=== PATIENT | female | born 1970 | race Caucasian/White ===

== ENCOUNTER 2019-05-22 15:03 | Emergency (ER) | payer OTHER ==
[~2019-05-22] VITALS: Ht 154.9 cm; Wt 45.4 kg
[2019-05-22] MEDS ORDERED: NORCO 5-325 TA1 EACH PO ×2 (15:15→17:12)
[2019-05-22] MEDS ORDERED: DIAZEPAM10 MG PO (15:15)
[2019-05-22] MEDS ORDERED: NEURONTIN600 MG PO (15:16)
[2019-05-22] MEDS ORDERED: CYCLOBENZAPRINE10 MG PO (15:16)
[2019-05-22] MEDS ORDERED: ACYCLOVIR400 MG PO (15:16)
[2019-05-22] MEDS ORDERED: BUSPIRONE HCL30 MG PO (15:17)
[2019-05-22] MEDS ORDERED: OMEPRAZOLE20 MG PO (15:17)
[2019-05-22] MEDS ORDERED: TRAZODONE HCL100 MG PO (15:17)
[2019-05-22] MEDS ORDERED: NABUMETONE750 MG PO (15:18)
[2019-05-22] MEDS ORDERED: ALL DAY ALLERGY10 M3 PO (15:18)
--- OUTSIDE RECORDS SUMMARY | 2019-05-22 16:30 | XMS ---
PreManage Notification: SEPIDEH POZO Security Medical Record Administrator Events No recent Security Events currently on file CRITERIA MET - [facility] CARE PROVIDERS There are no care providers on record at this time. Uriel has no Care Guidelines for this patient. Jose Miguel VISIT COUNT (12 MO.) 1 L[facility] Jin TOTAL 1 NOTE: Visits indicate total known visits. ED/C VISIT TRACKING (12 MO.) 05/22/2019 15:04 [facility] [place] TYPE: Emergency COMPLAINT: - FINGER INJURY INPATIENT VISIT TRACKING (12 MO.) No inpatient visits to display in this time frame [id number]
== END 2019-05-22 17:36 | disposition home or self-care (01) ==
LOC: ED 15:03
DX: S61.214D Laceration without foreign body of right ring finger without damage to nail, subsequent encounter (principal); F43.10 Post-traumatic stress disorder, unspecified; F17.200 Nicotine dependence, unspecified, uncomplicated; Z88.0 Allergy status to penicillin; Z88.2 Allergy status to sulfonamides; Z88.7 Allergy status to serum and vaccine; Z91.030 Bee allergy status; Z79.899 Other long term (current) drug therapy
CPT/HCPCS: 73140; 99283-25

== ENCOUNTER 2019-07-06 11:39 | Emergency (ER) | payer OTHER ==
[~2019-07-06] VITALS: Ht 154.9 cm; Wt 41.7 kg
[~2019-07-06 11:39] MED LIST: ACYCLOVIR400 MG PO; ALL DAY ALLERGY10 M3 PO; BUSPIRONE HCL30 MG PO; CYCLOBENZAPRINE10 MG PO; DIAZEPAM10 MG PO; DOXYCYCLINE HY100 MG PO; KEFLEX500 MG PO; NABUMETONE750 MG PO; NEURONTIN600 MG PO; NORCO 5-325 TA1 EACH PO; OMEPRAZOLE20 MG PO; TRAZODONE HCL100 MG PO; ULTRAM50 MG PO
--- OUTSIDE RECORDS SUMMARY | 2019-07-06 11:42 | XMS ---
PreManage Notification: SEPIDEH POZO Security Sap Pi Architect Events No recent Security Events currently on file CRITERIA MET - [facility] There are no care providers on record at this time. Uriel has no Care Guidelines for this patient. Jose Miguel VISIT COUNT (12 MO.) 3 LENNY Jin TOTAL 3 NOTE: Visits indicate total known visits. ED/UCC VISIT TRACKING (12 MO.) 07/06/2019 11:40 [facility] [place] TYPE: Emergency COMPLAINT: - COUGH, FEVER, SOB 06/03/2019 05:23 [facility] [place] TYPE: Emergency COMPLAINT: - POSSIBLE WOUND INFECTION DIAGNOSES: - Local infection of the skin and subcutaneous tissue, unspecif - Nicotine dependence, unspecified, uncomplicated - Infct fol a proc, superfic incisional surgical site, init 05/22/2019 15:04 [facility] [place] TYPE: Emergency COMPLAINT: - FINGER INJURY DIAGNOSES: - Allergy status to sulfonamides status - Post-traumatic stress disorder, unspecified - Allergy status to serum and vaccine status - Other longterm (current) drug therapy - Laceration without foreign body of right ring finger without - Bee allergy status - Allergy status to penicillin - Nicotine dependence, unspecified, uncomplicated INPATIENT VISIT TRACKING (12 MO.) No inpatient visits to display in this time frame [id number]
== END 2019-07-06 14:07 | disposition home or self-care (01) ==
LOC: ED 11:39
DX: B34.9 Viral infection, unspecified (principal); F41.9 Anxiety disorder, unspecified; F17.200 Nicotine dependence, unspecified, uncomplicated; Z88.0 Allergy status to penicillin; Z88.2 Allergy status to sulfonamides; Z79.899 Other long term (current) drug therapy
CPT/HCPCS: 71045; 87502; 99283-25

== ENCOUNTER 2019-09-06 15:01 | Emergency (ER) | payer OTHER ==
[~2019-09-06] VITALS: Ht 154.9 cm; Wt 41.7 kg
--- OUTSIDE RECORDS SUMMARY | 2019-09-06 15:06 | XMS ---
PreManage Notification: SEPIDEH POZO Security Administrative Technician Events No recent Security Events currently on file CRITERIA MET - [facility] There are no care providers on record at this time. Uriel has no Care Guidelines for this patient. Jose Miguel VISIT COUNT (12 MO.) 4 LENNY Jin TOTAL 4 NOTE: Visits indicate total known visits. ED/C VISIT TRACKING (12 MO.) 09/06/2019 15:03 [facility] [place] TYPE: Emergency COMPLAINT: - SKIN PROBLEM 07/06/2019 11:40 [facility] [place] TYPE: Emergency COMPLAINT: - COUGH, FEVER, SOB DIAGNOSES: - Bee allergy status - Nicotine dependence, unspecified, uncomplicated - Other intermediate (current) drug therapy - Cough - Allergy status to sulfonamides status - Allergy status to penicillin - Allergy status to serum and vaccine status - Viral infection, unspecified - Anxiety disorder, unspecified 06/03/2019 05:23 [facility] [place] TYPE: Emergency COMPLAINT: - POSSIBLE WOUND INFECTION DIAGNOSES: - Local infection of the skin and subcutaneous tissue, unspecif - Nicotine dependence, unspecified, uncomplicated - Infct fol a proc, superfic incisional surgical site, init 05/22/2019 15:04 [facility] [place] TYPE: Emergency COMPLAINT: - FINGER INJURY DIAGNOSES: - Allergy status to sulfonamides status - Post-traumatic stress disorder, unspecified - Allergy status to serum and vaccine status - Other intermediate (current) drug therapy - Laceration without foreign body of right ring finger without - Bee allergy status - Allergy status to penicillin - Nicotine dependence, unspecified, uncomplicated INPATIENT VISIT TRACKING (12 MO.) No inpatient visits to display in this time frame [id number]
[2019-09-06] MEDS ORDERED: DOXYCYCLINE HY100 MG PO (15:58)
== END 2019-09-06 16:07 | disposition home or self-care (01) ==
LOC: ED 15:01
DX: L73.9 Follicular disorder, unspecified (principal); F41.9 Anxiety disorder, unspecified; F17.200 Nicotine dependence, unspecified, uncomplicated; Z88.0 Allergy status to penicillin; Z88.2 Allergy status to sulfonamides; Z88.7 Allergy status to serum and vaccine; Z91.030 Bee allergy status
CPT/HCPCS: 99283

== ENCOUNTER 2019-11-17 17:54 | Emergency (ER) | payer OTHER ==
[~2019-11-17] VITALS: Ht 154.9 cm; Wt 41.7 kg
--- OUTSIDE RECORDS SUMMARY | 2019-11-17 17:56 | XMS ---
PreManage Notification: SEPIDEH POZO Security Side Stitching Machine Operator Events No recent Security Events currently on file CRITERIA MET - Group Notification CARE PROVIDERS FINESSE ROMERO Dentist 09/07/2019-Current PHONE: Unknown Uriel has no Care Guidelines for this patient. E.DKrista VISIT COUNT (12 MO.) 5 LENNY Jin TOTAL 5 NOTE: Visits indicate total known visits. ED/UCC VISIT TRACKING (12 MO.) 11/17/2019 17:54 [facility] [place] TYPE: Emergency COMPLAINT: - ABDOMINAL PAIN 09/06/2019 15:03 [facility] [place] TYPE: Emergency COMPLAINT: - SKIN PROBLEM DIAGNOSES: - Allergy status to sulfonamides status - Allergy status to penicillin - Follicular disorder, unspecified - Bee allergy status - Allergy status to serum and vaccine status - Anxiety disorder, unspecified - Nicotine dependence, unspecified, uncomplicated 07/06/2019 11:40 [facility] [place] TYPE: Emergency COMPLAINT: - COUGH, FEVER, SOB DIAGNOSES: - Bee allergy status - Nicotine dependence, unspecified, uncomplicated - Other terminal carman (current) drug therapy - Cough - Allergy status to sulfonamides status - Allergy status to penicillin - Allergy status to serum and vaccine status - Viral infection, unspecified - Anxiety disorder, unspecified 06/03/2019 05:23 [facility] [place] TYPE: Emergency [...] to serum and vaccine status - Other custodial (current) drug therapy - Laceration without foreign body of right ring finger without - Bee allergy status - Allergy status to penicillin - Nicotine dependence, unspecified, uncomplicated INPATIENT VISIT TRACKING (12 MO.) No inpatient visits to display in this time frame [id number]
[2019-11-17] MEDS ORDERED: MAGNESIUM CITR296 ML PO (20:42)
== END 2019-11-17 21:01 | disposition home or self-care (01) ==
LOC: ED 17:54
DX: R10.9 Unspecified abdominal pain (principal); F43.10 Post-traumatic stress disorder, unspecified; F41.9 Anxiety disorder, unspecified; F17.200 Nicotine dependence, unspecified, uncomplicated; Z91.030 Bee allergy status; Z88.0 Allergy status to penicillin; Z88.2 Allergy status to sulfonamides; Z88.7 Allergy status to serum and vaccine; Z79.899 Other long term (current) drug therapy
CPT/HCPCS: 74177; 80053; 81001; 83690; 85025; 99284-25; J7030

== ENCOUNTER 2019-12-04 09:31 | Emergency (ER) | payer OTHER ==
[~2019-12-04] VITALS: Ht 154.9 cm; Wt 41.7 kg
--- OUTSIDE RECORDS SUMMARY | ~2019-12-04 | XMS | Clinical Summary ---
Demographics + + + | Address | [address] | | | [place] [address] | + + + | Home Phone | | + + + | Preferred Language | Unknown | + + + | Marital Status | Unknown | + + + | Samaritan Affiliation | Unknown | + + + | Race | White | + + + | Ethnic Group | Not or | + + + Author + + + | Author | [facility] | | | and [place] | + + + | Organization | [facility] | | | and [place] | + + + | Address | Unknown | + + + | Phone | Unavailable | + + + Support + + +---------+ + | Name | Relationship | Address | Phone | + + +---------+ + | Maya Cabezas | ECON | Unknown | | + + +---------+ + Care Team Providers + +------+ + | Care Cage Maker Name | Role | Phone | + +------+ + | Serenity De La Cruz | PCP | | + +------+ + Allergies Not on File Medications Not on file Active Problems Not on file Social History + +-------+ +--------+------+ | Tobacco [...] on file | | + + + Last Filed Vital Signs Not on file Plan of Treatment +--------+---------+ + + + | Date | Type | Specialty | Care Team | Description | +--------+---------+ + + + | 12/19/ | Office | Physical Medicine | Moisés Andino, | | | 2019 | Visit | and Rehabilitation | MD Ana Maria Enciso | | | | | | [place] | | | | | | [address] | | | | | | | | +--------+---------+ + + + + + +-------+ + | Health Maintenance | Due Date | Last | Comments | | | | Done | | + + +-------+ + | Hepatitis C | | | | | Screening | 9 | | | + + +-------+ + | Vaccine: | | | | | Dtap/Tdap/Td (1 - | 8 | | | | Tdap) | | | | + + +-------+ + | Cervical Cancer | | | | | Screening (Pap) | 9 | | | + + +-------+ + | Breast Cancer | | | | | Screening | 4 | | | + + +-------+ + | Colorectal Cancer | | | | | Screening | 9 | | | | (Colonoscopy) | | | | + + +-------+ + | Vaccine: Zoster (1 | | | | | of 2) | 9 | | | + + +-------+ + | Adult Annual | | | | | Wellness Visit | 0 | | | + + +-------+ + | Vaccine: Influenza | | | | | (#1) | 0 | | | + + +-------+ + Results Not on filefrom Last 3 Months Insurance + +--------+ +--------+-------+---------+--------+ | Payer | Benefi | Subscriber | Effect | Phone | Address | Type | | | t Plan | ID | jacques | | | | | | / | | Dates | | | | | | Group | | | | | | + +--------+ +--------+-------+---------+--------+ | [employer] | [employer] | [id number] | 04/05/19 | | | Medica | | | HEALTH | | 20-Pre | | | re | | | MDCR | | sent | | | | + +--------+ +--------+-------+---------+--------+ + +--------+ +--------+ + + | Guarantor Name | Accoun | Relation to | Date | Phone | Billing Address | | | t Type | Patient | of | | | | | | | | | | + +--------+ +--------+ + + | Bhavna Carranza | Person | Self | [birth year] | [phone] | | | al/Fam | | 1971 | [phone] | [place] , [place] | | | andre | | | 0 (Home) | [phone] | + +--------+ +--------+ + + | Bhavna Carranza | Person | Self | [birth year] | [phone] | | | al/Fam | | 1971 | [phone] | [place] , [place] | | | andre | | | 0 (Home) | [address] | + +--------+ +--------+ + + Advance Directives + + + + + | Type | Date Recorded | Patient | Explanation | | | | Bottle House Cleaners Supervisor | | + + + + + | Power of | | | | | Security Specialist | | | | + + + + + | Advance | | | | | Directive | | | | + + + + +"
[~2019-12-04 09:31] MED LIST changes: +MAGNESIUM CITR296 ML PO
--- OUTSIDE RECORDS SUMMARY | 2019-12-04 09:34 | XMS ---
PreManage Notification: SEPIDEH POOZ Security Solid Center Winder Events No recent Security Events currently on file CRITERIA MET - Group Notification - PDMP - [facility] - 2 Visits in 30 Days CARE PROVIDERS EDMUNDO QUINTERO Physician Station Worker 11/20/2019-Current PHONE: [phone] FINESSE ROMERO Dentist 09/07/2019-Current PHONE: Unknown Uriel has no Care Guidelines for this patient. Care History Medical/Surgical 11/20/2019 [facility] - PATIENT HAS A PCP - EDMUNDO KAY IN [place]- [phone]. - PATIENT HAS AN APT WITH PODIATRY AT [facility] IN [facility] LOCATION - Dec APT DATE- [phone]. E.D. VISIT COUNT (12 MO.) [address] [facility] TOTAL 6 NOTE: Visits indicate total known visits. ED/UCC VISIT TRACKING (12 MO.) 12/04/2019 09:32 [facility] [place] TYPE: Emergency COMPLAINT: - DENTAL PROBLEM 11/17/2019 17:54 [facility] [place] TYPE: Emergency COMPLAINT: - ABDOMINAL PAIN DIAGNOSES: - Other long term care social worker (current) drug therapy - Allergy status to sulfonamides status - Allergy status to penicillin - Post-traumatic stress disorder, unspecified - Bee allergy status - Allergy status to serum and vaccine status - Unspecified abdominal pain - Nicotine dependence, unspecified, uncomplicated - Anxiety disorder, unspecified 09/06/2019 15:03 [facility] [place] TYPE: Emergency [...] - Nicotine dependence, unspecified, uncomplicated - Other long term care social worker (current) drug therapy - Cough - Allergy [...] to serum and vaccine status - Other long term care social worker (current) drug therapy - Laceration without foreign body of right ring finger without - Bee allergy status - Allergy status to penicillin - Nicotine dependence, unspecified, uncomplicated INPATIENT VISIT TRACKING (12 MO.) No inpatient visits to display in this time frame [id number]
[2019-12-04] MEDS ORDERED: GABAPENTIN600 MG PO (09:40)
[2019-12-04] MEDS ORDERED: AMITRIPTYLINE H10 MG PO (09:41)
[2019-12-04] MEDS ORDERED: EPINEPHRIN0.3 MG/0.3 IM (09:42)
[2019-12-04] MEDS ORDERED: PREDNISONE20 MG PO (10:04)
[2019-12-04] MEDS ORDERED: NAPROSYN500 MG PO (10:04)
[2019-12-04] MEDS ORDERED: CLINDAMYCIN HC300 MG PO (10:04)
== END 2019-12-04 10:10 | disposition home or self-care (01) ==
LOC: ED 09:31
DX: K04.7 Periapical abscess without sinus (principal); F41.9 Anxiety disorder, unspecified; F43.10 Post-traumatic stress disorder, unspecified; F17.200 Nicotine dependence, unspecified, uncomplicated; Z91.030 Bee allergy status; Z88.0 Allergy status to penicillin; Z88.2 Allergy status to sulfonamides; Z88.7 Allergy status to serum and vaccine; Z79.899 Other long term (current) drug therapy
CPT/HCPCS: 99283

== ENCOUNTER 2019-12-15 23:35 | Emergency (ER) | payer OTHER ==
[~2019-12-15] VITALS: Ht 154.9 cm; Wt 41.7 kg
--- OUTSIDE RECORDS SUMMARY | ~2019-12-15 | XMS | Encounter Summary ---
Demographics + + + | Address | [address] | | | [place] [address] | + + + | Home Phone | | + + + | Preferred Language | Unknown | + + + | Marital Status | Single | + + + | Sabianism Affiliation | 1041 | + + + | Race | White | + + + | Ethnic Group | Not or | + + + Author + + + | Author | [facility] | | | and [place] | + + + | Organization | [facility] | | | and [place] | + + + | Address | Unknown | + + + | Phone | Unavailable | + + + Support + + + + + | Name | Relationship | Address | Phone | + + + + + | September Raulito | ECON | [address] | | | | | [place] | | | | | [address] | | + + + + + Care Team Providers + +------+ + | Care Recreation Establishment Manager Name | Role | Phone | + +------+ + | Serenity De La Cruz | PCP | | + +------+ + Encounter Details +--------+ + + + + | Date | Type | Department | Care Team | Description | +--------+ + + + + | 12/12/ | Imaging | [facility] | Provider, | | | 2020 | Exam | [facility] | MD [address] | | | | | IMAGING [address] | [address] | | | | | [address] | [place] [address] | | | | | [place] [address] | | | | | | [phone] | | | +--------+ + + + + Social History + +-------+ +--------+------+ | Tobacco Use | Types | Packs/Day | Years | Date | | | | | Used | | + +-------+ +--------+------+ | Never Assessed | | | | | + +-------+ +--------+------+ + + + | Sex Assigned at | Date Recorded | | | | + + + | Not on file | | + + + documented as of this encounter Plan of Treatment +--------+ + + + + | Date | Type | Specialty | Care Team | Description | +--------+ + + + + | 12/19/ | Office | Physical Medicine | Moisés Andino, | | | 2019 | Visit | and Rehabilitation | MD Ana Maria Enciso | | | | | | [place] | | | | | | [address] | | | | | | | | +--------+ + + + + | 12/27/ | Office | Rehabilitation | Charleen Josue, | | | 2019 | Visit | | Speech Pathologist | | | | | | Alan Fry, | | | | | | Aide | | +--------+ + + + + | 12/28/ | Appointment | Radiology | Dave Caputo, | | | 2019 | | | REECE [address] | | | | | | Lakisha Chaves | | | | | | [place] [address] | | | | | | [phone] | | | | | | | | +--------+ + + + + documented as of this encounter Procedures + +--------+ + + + | Procedure Name | Priori | Date/Time | Associated Diagnosis | Comments | | | ty | | | | + +--------+ + + + | HANS DIGITAL | Routin | 10/28/2018 | | Results for this | | SCREENING BILATERAL | e | 12:00 AM | | procedure are in the | | | | PDT | | results section. | + +--------+ + + + documented in this encounter Results HANS Digital Screening Bilateral (10/28/2018 12:00 AM PDT) + + | Specimen | + + | | + + + + + | Narrative | Performed At | + + + | External films for comparison only | [facility] | | | | | No results will be in the chart. | | + + + + +---------+ + + | Performing | Address | City/State/Zipcode | Phone Number | | Organization | | | | + +---------+ + + | [facility] | | | | + +---------+ + + documented in this encounter Visit Diagnoses Not on filedocumented in this encounter"
--- OUTSIDE RECORDS SUMMARY | ~2019-12-15 | XMS | Encounter Summary ---
Demographics + + + | Address | [address] | | | [place] [address] | + + + | Home Phone | | + + + | Preferred Language | Unknown | + + + | Marital Status | Single | + + + | Adventist Affiliation | 1041 | + + + | Race | White | + + + | Ethnic Group | Not or | + + + Author + + + | Author | [facility] | | | and [place] | + + + | Organization | [facility] | | | and [place] | + + + | Address | Unknown | + + + | Phone | Unavailable | + + + Support + + + + + | Name | Relationship | Address | Phone | + + + + + | September Raulito | ECON | [address] | | | | | [place] | | | | | [address] | | + + + + + Care Team Providers + +------+ + | Care Pin Puller Name | Role | Phone | + +------+ + | Serenity De La Cruz | PCP | | + +------+ + Encounter Details +--------+ + + + + | Date | Type | Department | Care Team | Description | +--------+ + + + + | 12/05/ | Hospital | [facility] | Dave Caputo, | Wrist pain, left | | 2020 | Encounter | MED CTR XRAY [address] | PA-C [address] | | | | | [place] | [facility] [facility] [place] | | | | | [place] [address] | [place] [address] | | | | | [phone] | [phone] | | | | | | | [...] + + documented as of this encounter Medications at Time of Discharge + + + +---------+ + + | Medication | Sig | Dispensed | Refills | Start | End Date | | | | | | Date | | + + + +---------+ + + | amitriptyline | Take 10 mg by mouth | | 0 | 11/22/19 | | | (ELAVIL) 10 mg | nightly. | | | 20 | | | tablet | | | | | | + + + +---------+ + + | cetirizine | Take 10 mg by mouth | | 0 | 11/08/19 | | | (ZYRTEC) 10 mg | Daily. | | | 20 | | | tablet | | | | | | + + + +---------+ + + | clindamycin | Take 300 mg by mouth | | 0 | 12/04/19 | | | (CLEOCIN) 300 MG | every 6 hours. | | | 20 | | | capsule | | | | | | + + + +---------+ + + | DULoxetine | Take 60 mg by mouth | | 0 | 12/06/19 | | | (CYMBALTA) [address] | Daily. | | | 20 | | | capsule | | | | | | + + + +---------+ + + | EPINEPHrine | Inject 0.3 mLs into | | 0 | 11/08/19 | | | auto-injector 0.3 | the muscle as needed | | | 20 | | | mg/0.3 mL injection | for Anaphylaxis | | | | | | | Then call 911.. | | | | | + + + +---------+ + + | famotidine | Take 20 mg by mouth | | 0 | 09/27/19 | | | (PEPCID) 20 mg | Twice daily as | | | 20 | | | tablet | needed for | | | | | | | Heartburn. | | | | | + + + +---------+ + + | gabapentin | Take 300 mg by mouth | | 0 | 12/06/19 | | | (NEURONTIN) 300 mg | 3 times daily. | | | 20 | | | capsule | | | | | | + + + +---------+ + + | nabumetone | Take 750 mg by mouth | | 0 | 11/09/19 | | | (RELAFEN) 750 mg | 2 times daily. | | | 20 | | | tablet | | | | | | + + + +---------+ + + | ondansetron | Take 4 mg by mouth | | 0 | 09/27/19 | | | (ZOFRAN ODT) 4 mg | every 8 hours as | | | 20 | | | disintegrating | needed for Nausea or | | | | | | tablet | Vomiting. | | | | | + + + +---------+ + + | predniSONE | Take 60 mg by mouth | | 0 | 12/04/19 | | | (DELTASONE) 20 mg | Daily. | | | 20 | | | tablet | | | | | | + + + +---------+ + + documented as of this encounter Plan of Treatment +--------+ + + + + | Date | Type | Specialty | Care Team | Description | +--------+ + + + + | 12/19/ | Office | Physical Medicine | Moisés Andino, | | | 2019 | Visit | and Rehabilitation | [address] | | | | | | [place] | | | | | | [address] | | | | | | | | +--------+ + + + + | 12/27/ | Office | Rehabilitation | Charleen Josue, | | | 2019 | Visit | | Speech Pathologist | | | | | | Alan Fry, | | | | | | [place] | | +--------+ + + + + | 12/28/ | Appointment | Radiology | Dave Caputo, | | | 2019 | | | REECE [address] | | | | | | [address]isha [address] | | | | | | [place] [address] | | | | | | [phone] | | | | | | | | +--------+ + + + + documented as of this encounter Procedures + +--------+ + + + | Procedure Name | Priori | Date/Time | Associated Diagnosis | Comments | | | ty | | | | + +--------+ + + + | XR WRIST LEFT 3 + VW | Routin | 12/06/2019 | Wrist pain, left | Results for this | | | e | 11:15 AM | | procedure are in the | | | | PDT | | results section. | + +--------+ + + + documented in this encounter Results XR Wrist Left 3 + Vw (12/06/2019 11:15 AM PDT) + + | Specimen | + + | | + + + + + | Impressions | Performed At | + + + | 1. TINY OSSICLE ADJACENT TO THE FIRST METACARPAL HEAD AND | [facility] | | ASSOCIATED SOFT TISSUE SWELLING. CHIP OR AVULSION FRACTURE ARE | | | CONSIDERATIONS. Electronically signed by Flash Villatoro MD 12/06/2019 | | | 12:37 PM | | + + + + + + | Narrative | Performed At | + + + | 3 VIEWS LEFT | [facility] | | WRIST 12/06/2019 11:10 AM CLINICAL HISTORY: LEFT WRIST PAIN | | | COMPARISON: None available FINDINGS: The bones are well-mineralized | | | and well aligned. No overtfracture is evident. A tiny ossicle | | | projecting along the margin of thefirst metacarpal head is | | | nonspecific. There is overlying soft tissueswelling. Joint spaces are | | | maintained. | | |fracture is evident. A tiny ossicle projecting along the margin of the | | |first metacarpal head is nonspecific. There is overlying soft tissue | | |swelling. Joint spaces are maintained. | | | | | + + + + + | Procedure Note | + + | [place], [id number] - 12/06/2019 12:40 PM PDT 3 VIEWS LEFT WRIST 12/06/2019 11:10 AM | | | | CLINICAL HISTORY: LEFT WRIST PAIN | | | | COMPARISON: None available | | | | FINDINGS: The bones are well-mineralized and well aligned. No overt | | fracture is evident. A tiny ossicle projecting along the margin of the | | first metacarpal head is nonspecific. There is overlying soft tissue | | swelling. Joint spaces are maintained. | | | | IMPRESSION: | | 1. TINY OSSICLE ADJACENT TO THE FIRST METACARPAL HEAD AND ASSOCIATED | | SOFT TISSUE SWELLING. CHIP OR AVULSION FRACTURE ARE CONSIDERATIONS. | | | | Electronically signed by Flash Villatoro MD 12/06/2019 12:37 PM | + + + +---------+ + + | Performing | Address | City/State/Zipcode | Phone Number | | Organization | | | | + +---------+ + + | [facility] | | | | + +---------+ + + documented in this encounter Visit Diagnoses + + | Diagnosis | + + | Wrist pain, left Pain in joint, forearm | + + documented in this encounter"
--- OUTSIDE RECORDS SUMMARY | ~2019-12-15 | XMS | Encounter Summary ---
Demographics + + + | Address | [address] | | | [place] [address] | + + + | Home Phone | | + + + | Preferred Language | Unknown | + + + | Marital Status | Single | + + + | Taoist Affiliation | 1041 | + + + | Race | White | + + + | Ethnic Group | Not or | + + + Author + + + | Author | [facility] | | | and [place] | + + + | Organization | [facility] | | | and [place] | + + + | Address | Unknown | + + + | Phone | Unavailable | + + + Support + + + + + | Name | Relationship | Address | Phone | + + + + + | September Raulito | ECON | [address] | | | | | [place] | | | | | [address] | | + + + + + Care Team Providers + +------+ + | Care Career Services Director Name | Role | Phone | + +------+ + | Serenity De La Cruz | PCP | | + +------+ + Reason for Visit + +--------+ + | Reason | Onset | Comments | | | Date | | + +--------+ + | Missed Visit | 12/14/ | | | | 2020 | | + +--------+ + Encounter Details +--------+ + + + + | Date | Type | Department | Care Team | Description | +--------+ + + + + | 12/14/ | Telephone | [facility] | Charleen Josue, | Missed Visit | | 2019 | | [facility] | Speech Pathologist | | | | | [address] | | | | | | [place] | | | | | | [address] | | | | | | [phone] | | | +--------+ + + + + Social History + + + +--------+------+ | Tobacco Use | Types | Packs/Day | Years | Date | | | | | Used | | + + + +--------+------+ | Current Every Day | Cigarettes | 0.25 | | | | Smoker | | | | | + + + +--------+------+ + +---+---+---+ | Smokeless Tobacco: | | | | | Former User | | | | + +---+---+---+ + + +---------+ + | Alcohol Use | Drinks/Week | oz/Week | Comments | + + +---------+ + | Not Currently | | | | + + +---------+ + + + + + | Education | Answer | Date Recorded | + + + + | What is the highest level of school you | Bachelor's degree (e.g., | 12/07/2019 | | have completed or the highest degree you | BA, AB, BS) | | | have received? | | | + + + + + + + | Sex Assigned at | Date Recorded | | | | + + + | Not on file | | + + + documented as of this encounter Miscellaneous Notes Telephone Encounter - Precious Guzman - 12/15/2019 10:27 AM PDTPatient called to cancel visit on 12/15/19. Due to had to have 2 epinephrine shots and cannot drive. documented in this enc ounter Plan of Treatment +--------+ + + + + | Date | Type | Specialty | Care Team | Description | +--------+ + + + + | 09/16/ | Office | Physical Medicine | Moisés Andino, | | | 2019 | Visit | and Rehabilitation | MD Ana Maria Enciso | | | | | | [place] | | | | | | [address] | | | | | | | [...] | 2019 | | | [address] | | | | | | [place] | | | | | | [place] [address] | | | | | | [phone] | | | | | | | | +--------+ + + + + documented as of this encounter Visit Diagnoses Not on filedocumented in this encounter"
--- OUTSIDE RECORDS SUMMARY | ~2019-12-15 | XMS | Encounter Summary ---
Demographics + + + | Address | [address] | | | [place] [address] | + + + | Home Phone | | + + + | Preferred Language | Unknown | + + + | Marital Status | Single | + + + | Latter-Day Affiliation | 1041 | + + + | Race | White | + + + | Ethnic Group | Not or | + + + Author + + + | Author | [facility] | | | and [place] | + + + | Organization | [facility] | | | and [place] | + + + | Address | Unknown | + + + | Phone | Unavailable | + + + Support + + + + + | Name | Relationship | Address | Phone | + + + + + | September Raulito | ECON | [address] | | | | | [place] | | | | | [address] | | + + + + + Care Team Providers + +------+ + | Care Publisher Assistant Name | Role | Phone | + +------+ + | Serenity De La Cruz | PCP | | + +------+ + Encounter Details +--------+ + + + + | Date | Type | Department | Care Team | Description | +--------+ + + + + | 12/06/ | Abstract | [facility] | Provider, | | | 2019 | | PHYSIATRY [address] | [address], MD [address] | | | | | [address] | [place]. | | | | | [place] | [place] [address] | | | | | [address] | | | | | | [phone] | | | +--------+ + + + [...] | and Rehabilitation | MD Ana Maria Pantoja | | | | | | [place] | | | | | | [address] | | | | | | | [...] | | 2019 | | | [address] | | | | | | [place] | | | | | | [place] [address] | | | | | | [phone] | | | | | | | | +--------+ + + + + documented as of this encounter Visit Diagnoses Not on filedocumented in this encounter"
--- OUTSIDE RECORDS SUMMARY | ~2019-12-15 | XMS | Clinical Summary ---
Demographics + + + | Address | [address] | | | [place] [address] | + + + | Home Phone | | + + + | Preferred Language | Unknown | + + + | Marital Status | Single | + + + | Oriental Orthodox Affiliation | 1041 | + + + | Race | White | + + + | Ethnic Group | Not or | + + + Author + + + | Author | [facility] | | | and [place] | + + + | Organization | [facility] | | | and [place] | + + + | Address | Unknown | + + + | Phone | Unavailable | + + + Support + + + + + | Name | Relationship | Address | Phone | + + + + + | Maya Raulito | ECON | [address] | | | | | [place] | | | | | [address] | | + + + + + Care Team Providers + +------+ + | Care Licensed Occupational Therapist Name | Role | Phone | + +------+ + | Serenity De La Cruz | PCP | | + +------+ + Allergies + + + + + + | Active Allergy | Reactions | Severity | Noted | Comments | | | | | Date | | + + + + + + | Bee Venom | Anaphylaxis | High | | | + + + + + + | Penicillins | Anaphylaxis | High | 09/27/19 | | | | | | 20 | | + + + + + + | Sulfa Antibiotics | Anaphylaxis | High | 09/27/19 | | | | | | 20 | | + + + + + + Medications + + + +---------+------+------+-------+ | Medication | Sig | Dispensed | Refills | Star | End | Statu | | | | | | t | Date | s | | | | | | Date | | | + + + +---------+------+------+-------+ | EPINEPHrine | Inject 0.3 mLs into | | 0 | 08/0 | | Activ | | auto-injector 0.3 | the muscle as needed | | | 5/20 | | e | | mg/0.3 mL injection | for Anaphylaxis | | | 20 | | | | | Then call 911.. | | | | | | + + + +---------+------+------+-------+ | cetirizine | Take 10 mg by mouth | | 0 | 08/0 | | Activ | | (ZYRTEC) 10 mg | Daily. | | | 5/20 | | e | | tablet | | | | 20 | | | + + + +---------+------+------+-------+ | ondansetron | Take 4 mg by mouth | | 0 | 06/2 | | Activ | | (ZOFRAN ODT) 4 mg | every 8 hours as | | | 4/20 | | e | | disintegrating | needed for Nausea or | | | 20 | | | | tablet | Vomiting. | | | | | | + + + +---------+------+------+-------+ | nabumetone | Take 750 mg by mouth | | 0 | 08/0 | | Activ | | (RELAFEN) 750 mg | 2 times daily. | | | 6/20 | | e | | tablet | | | | 20 | | | + + + +---------+------+------+-------+ | | Take 1 tablet by | | 0 | | | Activ | | HYDROcodone-acetamin | mouth every 14 days. | | | | | e | | ophen (NORCO) 5-325 | | | | | | | | mg per tablet | | | | | | | + + + +---------+------+------+-------+ | diazePAM (VALIUM) | Take 5 mg by mouth | | 0 | | | Activ | | 5 mg tablet | every 6 hours as | | | | | e | | | needed for Anxiety. | | | | | | + + + +---------+------+------+-------+ | cyclobenzaprine | Take 10 mg by mouth | | 0 | | | Activ | | (FLEXERIL) 10 mg | every 12 hours as | | | | | e | | tablet | needed for Muscle | | | | | | | | spasms. | | | | | | + + + +---------+------+------+-------+ | omeprazole | Take 20 mg by mouth | | 0 | | | Activ | | (PRILOSEC) 20 mg | 2 times daily. | | | | | e | | capsule | | | | | | | + + + +---------+------+------+-------+ | Ferrous Sulfate | Take 50-100 mg by | | 0 | | | Activ | | Dried (FERROUS | mouth Daily. | | | | | e | | SULFATE IRON PO) | | | | | | | + + + +---------+------+------+-------+ | cholecalciferol | Take 2,000 Units by | | 0 | | | Activ | | (VITAMIN D3) 50 mcg | mouth Daily. | | | | | e | | (2,000 units) | | | | | | | | capsule | | | | | | | + + + +---------+------+------+-------+ | MAGNESIUM OXIDE PO | Take by mouth Daily. | | 0 | | | Activ | | | | | | | | e | + + + +---------+------+------+-------+ | POTASSIUM PO | Take by mouth Daily. | | 0 | | | Activ | | | | | | | | e | + + + +---------+------+------+-------+ | amitriptyline | Take 10 mg by mouth | | 0 | 08/1 | | Activ | | (ELAVIL) 10 mg | nightly. | | | 9/20 | | e | | tablet | | | | 20 | | | + + + +---------+------+------+-------+ | predniSONE | Take 60 mg by mouth | | 0 | 08/3 | | Activ | | (DELTASONE) 20 mg | Daily. | | | 1/20 | | e | | tablet | | | | 20 | | | + + + +---------+------+------+-------+ | clindamycin | Take 300 mg by mouth | | 0 | 08/3 | | Activ | | (CLEOCIN) 300 MG | every 6 hours. | | | 1/20 | | e | | capsule | | | | 20 | | | + + + +---------+------+------+-------+ | DULoxetine | Take 60 mg by mouth | | 0 | 09/0 | | Activ | | (CYMBALTA) [address] | Daily. | | | 2/20 | | e | | capsule | | | | 20 | | | + + + +---------+------+------+-------+ | gabapentin | Take 300 mg by mouth | | 0 | 09/0 | | Activ | | (NEURONTIN) 300 mg | 3 times daily. | | | 2/20 | | e | | capsule | | | | 20 | | | + + + +---------+------+------+-------+ | famotidine | Take 20 mg by mouth | | 0 | 06/2 | | Activ | | (PEPCID) 20 mg | Twice daily as | | | 4/20 | | e | | tablet | needed for | | | 20 | | | | | Heartburn. | | | | | | + + + +---------+------+------+-------+ Active Problems + + + | Problem | Noted Date | + + + | Fibromyalgia | 12/06/2019 | + + + + + | Overview: Per patient reportOn opioids for yearsLast | | Assessment & Plan: Much discussion with patient regarding | | treatment of fibromyalgia and chronic pain, opioids not indicated | | may make her chronic pain worse, reviewed the risks and side | | effects of opioid use. We reviewed other treatment options and | | she was agreeable to increased dose of gabapentin 300 mg t.i.d. | | as well as starting trial of Cymbalta which may help with | | concomitant mild depression. Start with 30 mg daily for 1 week | | then increase to 60 mg recheck in 1 month.She may continue her | | NSAIDs and muscle relaxers p.r.n. | + + + + + | Hx of tonic-clonic seizures | 11/22/2019 | + + + | Memory impairment | 11/22/2019 | + + + | Umbilical hernia without obstruction and without gangrene | 11/22/2019 | + + + + + | Overview: CT scan from ER report at [facility] | | [facility]-see scanned ER document November 2019 | + + Encounters +--------+ + + + + | Date | Type | Specialty | Care Team | Description | +--------+ + + + + | 12/14/ | Telephone | Rehabilitation | Charleen Josue, | Missed Visit | 2019 | | | Speech Pathologist | | +--------+ + + + + | 12/06/ | Abstract | Physical Medicine | Provider, | | | 2019 | | and Rehabilitation | MD Brandon | | +--------+ + + + + | 12/05/ | Hospital | Radiology | Dave Caputo, | Wrist pain, left | | 2019 | Encounter | | PA-C | | +--------+ + + + + from Last 3 Months Family History + + +------+ + | Medical History | Relation | Name | Comments | + + +------+ + | No known problems | Father | | | + + +------+ + | No known problems | Maternal | | | | | Grandfath | | | | | er | | | + + +------+ + | No known problems | Maternal | | | | | Grandmoth | | | | | er | | | + + +------+ + | Heart attack | Mother | | | + + +------+ + | Heart disease | Mother | | | + + +------+ + | Heart failure | Mother | | | + + +------+ + | No known problems | Paternal | | | | | Grandfath | | | | | er | | | + + +------+ + | No known problems | Paternal | | | | | Grandmoth | | | | | er | | | + + +------+ + + +------+--------+ + | Relation | Name | Status | Comments | + +------+--------+ + | Father | | Alive | | + +------+--------+ + | Maternal Grandfather | | | | + +------+--------+ + | Maternal Grandmother | | | | + +------+--------+ + | Mother | | Alive | | + +------+--------+ + | Paternal Grandfather | | | | + +------+--------+ + | Paternal Grandmother | | | | + +------+--------+ + Social History + + + +--------+------+ [...] Signs Not on file Plan of Treatment +--------+ + + + + | Date | Type | Specialty | Care Team | Description | +--------+ + + + + | 12/19/ | Office | Physical Medicine | Moisés Andino, | | 2019 | Visit | and Rehabilitation | MD Ana Maria Enciso | | | | | | [place] | | | | | | [phone] | | | | | | | [...] | Radiology | Dave Caputo, | | 2019 | | | [address] | | | | | | [place] | | | | | | [place] [address] | | | | | | [phone] | | | | | | | | +--------+ + + + + + + + + + | Health Maintenance | Due Date | Last | Comments | | | | Done | | + + + + + | Hepatitis C | | | | | Screening | 9 | | | + + + + + | Med Mgmt: BUN | | | | | | 9 | | | + + + + + | Med Mgmt: Cr | | | | | | 9 | | | + + + + + | Med Mgmt: Vit D | | | | | | 9 | | | + + + + + | Med Mgmt: eGFR | | | | | | 9 | | | + + + + + | Medication | | | | | Management | 9 | | | + + + + + | Vaccine: | | | | | Pneumococcal 19-64 | 5 | | | | (1 of 1 - PPSV23) | | | | + + + + + | Vaccine: | | | | | Dtap/Tdap/Td (1 - | 8 | | | | Tdap) | | | | + + + + + | Cervical Cancer | | | | | Screening (Pap) | 9 | | | + + + + + | Colorectal Cancer | | | | | Screening | 9 | | | | (Colonoscopy) | | | | + + + + + | Vaccine: Zoster (1 | | | | | of 2) | 9 | | | + + + + + | Breast Cancer | | 10/29/19 | | | Screening | 0 | 19, | | | | | 08/14/19 | | | | | 13 | | + + + + + | Adult Annual | | | | | Wellness Visit | 0 | | | + + + + + | Vaccine: Influenza | | 01/20/20 | | | (#1) | 0 | 17, | | | | | 01/20/20 | | | | | 17, | | | | | 01/14/20 | | | | | 16, | | | | | Addition | | | | | al | | | | | history | | | | | exists | | + + + + + Procedures + +--------+ + + + | [...] section. | + +--------+ + + + from Last 3 Months Results XR Wrist Left 3 + Vw [...] Procedure Note | + + | Torey, [id number] - 12/06/2019 12:40 PM PDT 3 VIEWS [...] | | | + +---------+ + + from Last 3 Months Insurance + +--------+ +--------+ +---------+--------+ | Payer | Benefi | Subscriber | Effect | Phone | Address | Type | | | t Plan | ID | jacques | | | | | | / | | Dates | | | | | | Group | | | | | | + +--------+ +--------+ +---------+--------+ | [employer] | MOD[employer] | [id number] | 04/05/19 | | | Medica | | | HEALTH | | 20-Pre | | | re | | | MDCR | | sent | | | | + +--------+ +--------+ +---------+--------+ | [employer] | [employer] | [id number] | 12/05/19 | [phone] | | Medica | | MEDICAID HMO | HEALTH | | 20-Pre | 1 | | id | | | MDCD | | sent | | | | | | [place]MO [place] | | | | | | + +--------+ +--------+ +---------+--------+ + +--------+ +--------+ + + | Guarantor Name | Accoun | Relation to | Date | Phone | Billing Address | | | t Type | Patient | of | | | | | | | | | | + +--------+ +--------+ + + | Bhavna Carranza | Person | Self | [birth year] | [address] | | | al/Fam | | 1970 | [phone] | [place] , [place] | | | andre | | | 1 (Home) | [address] | + +--------+ +--------+ + + | Bhavna Carranza | Person | Self | [birth year] | | [address] | | | al/Fam | | 1970 | [phone] | [place] , [place] | | | andre | | | 1 (Home) | [address] | + +--------+ +--------+ + + | Bhavna Carranza | Person | Self | [birth year] | | [address] | | | al/Fam | | 1970 | [phone] | [place] , [place] | | | andre | | | 1 (Home) | [address] | + +--------+ +--------+ + + Advance Directives + + + + + | Type | Date Recorded | Patient | Explanation | | | | Product Transfer Pumper | | + + + + + | Power of | | | | | Finishing Range Supervisor | | | | + + + + + | Advance | | | | | Directive | | | | + + + + +"
--- OUTSIDE RECORDS SUMMARY | ~2019-12-15 | XMS | Encounter Summary ---
Demographics + + + | Address | [address] | | | [place] [address] | + + + | Home Phone | | + + + | Preferred Language | Unknown | + + + | Marital Status | Single | + + + | Moravian Affiliation | 1041 | + + + | Race | White | + + + | Ethnic Group | Not or | + + + Author + + + | Author | [facility] | | | and [place] | + + + | Organization | [facility] | | | and [place] | + + + | Address | Unknown | + + + | Phone | Unavailable | + + + Support + + + + + | Name | Relationship | Address | Phone | + + + + + | September Raulito | ECON | [address] | | | | | [place] | | | | | [address] | | + + + + + Care Team Providers + +------+ + | Care Botany Teacher Name | Role | Phone | + [...] | | | | ANDRADE SHAFFER | [place] [address] | | | | | [place] [address] | | | | | | [phone] | | | +--------+ + + + [...] [place] | | | | | | [address] | | | | | | | [...] | 2019 | | | [address] | | | | | | [place] | | | | | | [place] [address] | | | | | | [phone] | | | | | | | | +--------+ + + + + documented as of this encounter Procedures + +--------+ + + + | Procedure Name | Priori | Date/Time | Associated Diagnosis | Comments | | | ty | | | | + +--------+ + + + | HANS DIGITAL | Routin | 08/13/2012 | | Results for this | | SCREENING BILATERAL | e | 12:00 AM | | procedure are in the | | | | PDT | | results section. | + +--------+ + + + documented in this encounter Results HANS Digital Screening Bilateral (08/13/2012 12:00 AM PDT) + + | Specimen [...]
[~2019-12-15 23:35] MED LIST changes: +AMITRIPTYLINE H10 MG PO; +CLINDAMYCIN HC300 MG PO; +EPINEPHRIN0.3 MG/0.3 IM; +GABAPENTIN600 MG PO; +NAPROSYN500 MG PO; +PREDNISONE20 MG PO
--- OUTSIDE RECORDS SUMMARY | 2019-12-15 23:38 | XMS ---
PreManage Notification: SEPIDEH POZO Security Training Developer Events No recent Security Events currently on file CRITERIA MET - [facility] - [facility] - 2 Visits in 30 Days CARE PROVIDERS EDMUNDO QUINTERO Physician Guide Cruise 11/20/2019-Current PHONE: [phone] FINESSE ROMERO Dentist 09/07/2019-Current PHONE: Unknown Uriel has no Care Guidelines for this patient. Care History Medical/Surgical 12/05/2019 [facility] - [facility] CALLED PATIENT - LEFT A VOICEMAIL. 11/20/2019 [facility] - PATIENT HAS A PCP - EDMUNDO KAY [place]- [phone]. - PATIENT HAS AN APT WITH PODIATRY AT [facility] IN [facility] - Dec APT DATE- [phone]. E.D. VISIT COUNT (12 MO.) 7 LENNY Jin TOTAL 7 NOTE: Visits indicate total known visits. ED/UCC VISIT TRACKING (12 MO.) 12/15/2019 23:35 [facility] [place] TYPE: Emergency COMPLAINT: - WRIST INJ 12/04/2019 09:32 [facility] [place] TYPE: Emergency COMPLAINT: - DENTAL PROBLEM DIAGNOSES: - Allergy status to serum and vaccine status - Other specified disorders of teeth and supporting structures - Periapical abscess without sinus - Allergy status to sulfonamides status - Bee allergy status - Other jail (current) drug therapy - Allergy status to penicillin - Post-traumatic stress disorder, unspecified - Anxiety disorder, unspecified - Nicotine dependence, unspecified, uncomplicated 11/17/2019 17:54 [facility] [place] TYPE: Emergency COMPLAINT: - ABDOMINAL PAIN DIAGNOSES: - Other jail (current) drug therapy - Allergy status to [...] - Nicotine dependence, unspecified, uncomplicated - Other jail (current) drug therapy - Cough - Allergy [...] to serum and vaccine status - Other jail (current) drug therapy - Laceration without foreign body of right ring finger without - Bee allergy status - Allergy status to penicillin - Nicotine dependence, unspecified, uncomplicated INPATIENT VISIT TRACKING (12 MO.) No inpatient visits to display in this time frame [id number]
== END 2019-12-16 00:31 | disposition home or self-care (01) ==
LOC: ED 23:35
DX: M25.532 Pain in left wrist (principal); F43.10 Post-traumatic stress disorder, unspecified; F41.9 Anxiety disorder, unspecified; Z85.41 Personal history of malignant neoplasm of cervix uteri; Z85.42 Personal history of malignant neoplasm of other parts of uterus; Z85.828 Personal history of other malignant neoplasm of skin; F17.200 Nicotine dependence, unspecified, uncomplicated; Z88.0 Allergy status to penicillin; Z88.2 Allergy status to sulfonamides; Z91.030 Bee allergy status; Z79.899 Other long term (current) drug therapy
CPT/HCPCS: 99283

== ENCOUNTER 2020-07-20 14:37 | Emergency (ER) | payer OTHER ==
[~2020-07-20] VITALS: Ht 154.9 cm; Wt 41.7 kg
[2020-07-20] MEDS ORDERED: MACROBID 100 M100 MG PO (18:11)
== END 2020-07-20 18:23 | disposition home or self-care (01) ==
LOC: ED 14:37
DX: S70.11XA Contusion of right thigh, initial encounter (principal); F15.90 Other stimulant use, unspecified, uncomplicated; N39.0 Urinary tract infection, site not specified; W22.8XXA Striking against or struck by other objects, initial encounter; F17.200 Nicotine dependence, unspecified, uncomplicated; Z85.42 Personal history of malignant neoplasm of other parts of uterus; Z85.828 Personal history of other malignant neoplasm of skin; Z85.89 Personal history of malignant neoplasm of other organs and systems; Z91.030 Bee allergy status; Z88.0 Allergy status to penicillin; Z88.2 Allergy status to sulfonamides; Z88.7 Allergy status to serum and vaccine; Z79.899 Other long term (current) drug therapy
CPT/HCPCS: 80053; 81001; 85025; 85610; 85651; 85730; 87077; 87088; 87186; 99283

== ENCOUNTER 2020-11-15 13:28 | Emergency (ER) | payer OTHER ==
[~2020-11-15] VITALS: Ht 154.9 cm; Wt 45.4 kg
[~2020-11-15 13:28] MED LIST changes: +MACROBID 100 M100 MG PO
--- OUTSIDE RECORDS SUMMARY | 2020-11-15 13:30 | XMS ---
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 Care History Medical/Surgical 12/18/2019 [facility] Care Recommendation: - PLEASE REVIEW PDMP ON THE URIEL - USE EXTREME CAUTION IN GIVING NARCOTICS. - Avoid Discharge Narcotic prescriptions if at all possible. Physician discretion. 12/05/2019 [facility] - [facility] CALLED PATIENT - LEFT A VOICEMAIL. 11/20/2019 [facility] - PATIENT HAS A PCP - EDMUNDO KAY IN [place]- [phone]. - PATIENT HAS AN APT WITH POD[facility]ATRY AT [facility] - Dec APT DATE- [phone]. E.D. VISIT COUNT (12 MO.) [address] [facility] TOTAL 5 NOTE: Visits indicate total known visits. ED/UCC VISIT TRACKING (12 MO.) 11/15/2020 13:29 [facility] [place] TYPE: Emergency COMPLAINT: - RIGHT HAND INJURY 07/20/2020 14:38 [facility] [place] TYPE: Emergency COMPLAINT: - POSSIBLE INFECTION, ALL OVER DIAGNOSES: - Contusion of right thigh, initial encounter - Striking against or struck by other objects, initial encounter - Personal history of malignant neoplasm of other parts of uterus - Urinary tract infection, site not specified - Personal history of malignant neoplasm of other organs and systems - Bee allergy status - Allergy status to serum and vaccine - Personal history of other malignant neoplasm of skin - Other long-term (current) drug therapy - Nicotine dependence, unspecified, uncomplicated - Other stimulant use, unspecified, uncomplicated - Allergy status to sulfonamides - Allergy status to penicillin 12/15/2019 23:35 [facility] [place] TYPE: Emergency COMPLAINT: - WRIST INJ DIAGNOSES: - Anxiety disorder, unspecified - Allergy status to penicillin - Other superintendent marine [employer] (current) drug therapy - Post-traumatic stress disorder, unspecified - Personal history of malignant neoplasm of cervix uteri - Allergy status to sulfonamides - Nicotine dependence, unspecified, uncomplicated - Personal history of other malignant neoplasm of skin - Pain in left wrist - Personal history of malignant neoplasm of other parts of uterus - Bee allergy status 12/04/2019 09:32 [facility] [place] TYPE: Emergency COMPLAINT: - DENTAL PROBLEM DIAGNOSES: - Allergy status to serum and vaccine - Other specified disorders of teeth and supporting structures - Periapical abscess without sinus - Allergy status to sulfonamides - Bee allergy status - Other superintendent marine oil terminal (current) drug therapy - Allergy status to penicillin - Post-traumatic stress disorder, unspecified - Anxiety disorder, unspecified - Nicotine dependence, unspecified, uncomplicated 11/17/2019 17:[address] [facility] [place] TYPE: Emergency COMPLAINT: - ABDOMINAL PAIN DIAGNOSES: - Other long-term (current) drug therapy - Allergy status to sulfonamides - Allergy status to penicillin - Post-traumatic stress disorder, unspecified - Bee allergy status - Allergy status to serum and vaccine - Unspecified abdominal pain - Nicotine dependence, unspecified, uncomplicated - Anxiety disorder, unspecified INPATIENT VISIT TRACKING (12 MO.) No inpatient visits to display in this time frame [email or web address]
== END 2020-11-15 16:33 | disposition home or self-care (01) ==
LOC: ED 13:28
DX: S63.501A Unspecified sprain of right wrist, initial encounter (principal); S63.91XA Sprain of unspecified part of right wrist and hand, initial encounter; F43.10 Post-traumatic stress disorder, unspecified; Z85.42 Personal history of malignant neoplasm of other parts of uterus; Z85.828 Personal history of other malignant neoplasm of skin; Z85.41 Personal history of malignant neoplasm of cervix uteri; F17.200 Nicotine dependence, unspecified, uncomplicated; Z91.030 Bee allergy status; Z88.0 Allergy status to penicillin; Z88.2 Allergy status to sulfonamides; Z88.7 Allergy status to serum and vaccine; Z79.899 Other long term (current) drug therapy
CPT/HCPCS: 73110; 99283-25

== ENCOUNTER 2025-03-29 12:03 | Emergency (ER) | payer OTHER ==
[~2025-03-29] VITALS: Ht 154.9 cm; Wt 46.7 kg
[2025-03-29] MEDS ORDERED: PRILOSEC10 M1 PO (12:35)
[2025-03-29] MEDS ORDERED: NORVASC5 MG PO (12:35)
[2025-03-29] MEDS ORDERED: LORAZEPAM0.5 MG PO (12:35)
[2025-03-29] MEDS ORDERED: LISINOPRIL5 MG (12:35)
[2025-03-29] MEDS ORDERED: PREDNISONE20 MG PO (12:36)
[2025-03-29] MEDS ORDERED: CLEOCIN HCL300 MG PO (14:12)
[2025-03-29] MEDS ORDERED: ACETAMINOPHEN 500 MG TAB PO ONE (14:15)
[2025-03-29 14:28] VITALS: BP 131/98
== END 2025-03-29 14:35 | disposition home or self-care (01) ==
LOC: ED 12:03
DX: K04.7 Periapical abscess without sinus (principal); F43.10 Post-traumatic stress disorder, unspecified; F17.200 Nicotine dependence, unspecified, uncomplicated; Z79.52 Long term (current) use of systemic steroids; Z79.899 Other long term (current) drug therapy; Z91.030 Bee allergy status; Z88.0 Allergy status to penicillin; Z88.2 Allergy status to sulfonamides; Z88.7 Allergy status to serum and vaccine
CPT/HCPCS: 99283; A9270